=== PATIENT | female | born 1940 | race Caucasian/White ===

== ENCOUNTER 2018-10-16 18:16 | Emergency (ER) | payer MEDICARE, BC ==
[~2018-10-16] VITALS: Ht 165.1 cm; Wt 66.7 kg
--- OUTSIDE RECORDS SUMMARY | ~2018-10-16 | XMS | Encounter Summary ---
Demographics + + + | Address | [address] | | | [place] [address] | + + + | Home Phone | | + + + | Preferred Language | Unknown | + + + | Marital Status | Single | + + + | Temple Affiliation | Unknown | + + + | Race | Unknown | + + + | Ethnic Group | Unknown | + + + Author + + + | Author | [facility] | + + + | Organization | [facility] | + + + | Address | Unknown | + + + | Phone | Unavailable | + + + Support + + + + + | Name | Relationship | Address | Phone | + + + + + | Franny Pacheco | ECON | [address] | | | | | [place] | | | | | [address] | | + + + + + | Ashish Paniagua | ECON | [address] | | | | | [place] | | | | | [phone] | | + + + + + Care Team Providers + +------+ + | Care Inter Fold Roll Cutter Name | Role | Phone | + +------+ + | Silvia Adrian PA-C | PCP | | + +------+ + Reason for Visit + + + | Reason | Comments | + + + | Melly Early | Vic - 07/29/18 - sol[place]ad | + + + Encounter Details +--------+ + + + + | Date | Type | Department | Care Team | Description | +--------+ + + + + | 08/05/ | Documentati | [facility] | [place], | Labs Only ([facility] | | 2019 | on Only | [address] | KIRSTEN Martínez | - 07/29/18 - | | | | [address] | | [place]ia | | | | [place] [address] | | | | | | [phone] | | | +--------+ + + + + Social History + +-------+ +--------+------+ | Tobacco Use | Types | Packs/Day | Years | Date | | | | | Used | | + +-------+ +--------+------+ | Never Smoker | | | | | + +-------+ +--------+------+ + + +---------+ + | Alcohol Use | Drinks/We | oz/Week | Comments | | | ek | | | + + +---------+ + | No | | | | + + +---------+ + + + + | Sex Assigned at | Date Recorded | | | | + + + | Not on file | | + + + as of this encounter Plan of Treatment Not on fileas of this encounter Procedures + +--------+ + + + | Procedure Name | Priori | Date/Time | Associated Diagnosis | Comments | | | ty | | | | + +--------+ + + + | URINALYSIS | Routin | 07/29/2018 | | Results for this | | W/MICROSCOPIC | e | 12:00 AM | | procedure are in the | | (REFLEX TO CULTURE) | | PST | | results section. | + +--------+ + + + | PTH, INTACT AND | Routin | 07/29/2018 | | Results for this | | CALCIUM | e | 12:00 AM | | procedure are in the | | | | PST | | results section. | + +--------+ + + + | PROTEIN / CREATININE | Routin | 07/29/2018 | | Results for this | | RATIO, URINE | e | 12:00 AM | | procedure are in the | | | | PST | | results section. | + +--------+ + + + | CBC W/AUTO DIFF | Routin | 07/29/2018 | | Results for this | | (REFLEX TO MANUAL) | e | 12:00 AM | | procedure are in the | | | | PST | | results section. | + +--------+ + + + | URIC ACID | Routin | 07/29/2018 | | Results for this | | | e | 12:00 AM | | procedure are in the | | | | PST | | results section. | + +--------+ + + + | MAGNESIUM | Routin | 07/29/2018 | | Results for this | | | e | 12:00 AM | | procedure are in the | | | | PST | | results section. | + +--------+ + + + | RENAL FUNCTION PANEL | Routin | 07/29/2018 | | Results for this | | | e | 12:00 AM | | procedure are in the | | | | PST | | results section. | + +--------+ + + + in this encounter Results Uric acid (07/29/2018) + +-------+ + + | Component | Value | Ref Range | Performed At | + +-------+ + + | URIC ACID | 4.4 | 2.3 - 6.6 | [facility] | | | | | LABORATORY | + +-------+ + + + + | Specimen | + + | Blood | + + + + + + + | Performing | Address | City/State/Zipcode | Phone Number | | Organization | | | | + + + + + | [facility] | [address] | [place] [address] | | | LABORATORY | 13 | | | + + + + + Protein / creatinine ratio, urine (07/29/2018) + + + + + | Component | Value | Ref Range | Performed At | + + + + + | UR | Comment: NOT PERFORMED - | 0 - 150 | [facility] | | PROTEIN/CREATININE | | | LABORATORY | + + + + + + + | Specimen | + + | Urine - Urine, | | Unspecified Source | + + + + + | Narrative | Performed At | + + + | PROTEIN, URINE <4 - 0.0 - 50.0 CREATININE, URINE - 36 | [facility] | | | LABORATORY | + + + + + + + + | Performing | Address | City/State/Zipcode | Phone Number | | Organization | | | | + + + + + | [facility] | [address] | [place] [address] | | | LABORATORY | 13 | | | + + + + + Renal function panel (07/29/2018) + +---------+ + + | Component | Value | Ref Range | Performed At | + +---------+ + + | GLUCOSE | 112 (A) | 70 - 100 mg/dL | [facility] | | | | | LABORATORY | + +---------+ + + | BUN | 12 | 6 - 23 mg/dL | [facility] | | | | | LABORATORY | + +---------+ + + | CREATININE | 1.03 | 0.70 - 1.11 mg/dL | [facility] | | | | | LABORATORY | + +---------+ + + | PHOSPHORUS | | mg/dL | [facility] | | | | | LABORATORY | + +---------+ + + | Albumin | 4.4 | 3.5 - 5.0 | [facility] | | | | | LABORATORY | + +---------+ + + | SODIUM | 140 | 132 - 143 | [facility] | | | | | LABORATORY | + +---------+ + + | POTASSIUM | 4.6 | 3.6 - 5.1 mmol/L | [facility] | | | | | LABORATORY | + +---------+ + + | CHLORIDE | 101 | 95 - 112 mmol/L | [facility] | | | | | LABORATORY | + +---------+ + + | CO2 | 27 | 19 - 31 mmol/L | [facility] | | | | | LABORATORY | + +---------+ + + | ANION GAP AGAP | 16.6 | 7 - 21 mmol/L | [facility] | | | | | LABORATORY | + +---------+ + + | GFR MDRD Non Af Amer | | | [facility] | | | | | LABORATORY | + +---------+ + + | Phosphorus,Inorganic | 3.3 | 2.5 - 5.0 | [facility] | | | | | LABORATORY | + +---------+ + + | BUN/CREAT | 11.7 | 6.0 - 28.6 | [facility] | | | | | LABORATORY | + +---------+ + + | CALCIUM | 10.1 | 8.5 - 10.3 mg/dL | [facility] | | | | | LABORATORY | + +---------+ + + | EGFR | 52 | mg/dL | [facility] | | | | | LABORATORY | + +---------+ + + + + | Specimen | + + | Blood | + + + + + + + | Performing | Address | City/State/Zipcode | Phone Number | | Organization | | | | + + + + + | [facility] | [address] | [place] [address] | | | LABORATORY | 13 | | | + + + + + Magnesium (07/29/2018) + +-------+ + + | Component | Value | Ref Range | Performed At | + +-------+ + + | MAGNESIUM | 2.0 | 1.7 - 2.5 mg/dL | [facility] | | | | | LABORATORY | + +-------+ + + + + | Specimen | + + | Blood | + + + + + + + | Performing | Address | City/State/Zipcode | Phone Number | | Organization | | | | + + + + + | [facility] | [address] | [place] [address] | | | LABORATORY | 13 | | | + + + + + CBC W/Auto Diff (Reflex to Manual) (07/29/2018) + +---------+ + + | Component | Value | Ref Range | Performed At | + +---------+ + + | WBC | 4.3 (A) | 4.5 - 11.0 10^3/mL | [facility] | | | | | LABORATORY | + +---------+ + + | RBC | 4.00 | 3.8 - 5.1 10^6/ L | [facility] | | | | | LABORATORY | + +---------+ + + | HGB | 13.3 | 12.0 - 16.0 g/dL | [facility] | | | | | LABORATORY | + +---------+ + + | HCT | 37.6 | 35 - 45 % | [facility] | | | | | LABORATORY | + +---------+ + + | MCV | 93.9 | 81 - 99 fL | [facility] | | | | | LABORATORY | + +---------+ + + | MCH | 33 | 27 - 33 pg | [facility] | | | | | LABORATORY | + +---------+ + + | MCHC | 35 | 30 - 36 g/dL | [facility] | | | | | LABORATORY | + +---------+ + + | PLT | 243 | 140 - 440 K/ L | [facility] | | | | | LABORATORY | + +---------+ + + | RDW SD | 13.2 | 10.5 - 15.0 % | [facility] | | | | | LABORATORY | + +---------+ + + | MPV | | fL | [facility] | | | | | LABORATORY | + +---------+ + + | DIFF TYPE | | | [facility] | | | | | LABORATORY | + +---------+ + + | NEUTROPHILS | 50.5 | 39 - 80 % | [facility] | | | | | LABORATORY | + +---------+ + + | LYMPHOCYTES | 40.2 | 24 - 44 % | [facility] | | | | | LABORATORY | + +---------+ + + | MONOCYTES | 6.2 | 0 - 12 % | [facility] | | | | | LABORATORY | + +---------+ + + | EOSINOPHILS | 2.2 | 0 - 6 % | [facility] | | | | | LABORATORY | + +---------+ + + | BASOPHILS | 0.9 | 0 - 2 % | [facility] | | | | | LABORATORY | + +---------+ + + | NEUTROPHILS ABS | | / L | [facility] | | | | | LABORATORY | + +---------+ + + | LYMPHOCYTES ABS | | / L | [facility] | | | | | LABORATORY | + +---------+ + + | MONOCYTES ABS | | / L | [facility] | | | | | LABORATORY | + +---------+ + + | EOSINOPHILS ABS | | / L | [facility] | | | | | LABORATORY | + +---------+ + + | BASOPHILS ABS | | / L | [facility] | | | | | LABORATORY | + +---------+ + + + + | Specimen | + + | Blood | + + + + + + + | Performing | Address | City/State/Zipcode | Phone Number | | Organization | | | | + + + + + | [facility] | [address] | [place] [address] | | | LABORATORY | 13 | | | + + + + + Urinalysis w/microscopic (reflex to culture) (07/29/2018) + + + + + | Component | Value | Ref Range | Performed At | + + + + + | COLOR UA | Light Yellow | | [facility] | | | | | LABORATORY | + + + + + | CLARITY | Clear | | [facility] | | | | | LABORATORY | + + + + + | SPECIFIC | 1.006 | 1.005 - 1.030 | [facility] | | GRAVITY,URINE | | | LABORATORY | + + + + + | LEUKOCYTE ESTERASE | Negative | | [facility] | | | | | LABORATORY | + + + + + | NITRITE | Negative | | [facility] | | | | | LABORATORY | + + + + + | UROBILINOGEN | Normal | | [facility] | | | | | LABORATORY | + + + + + | PROTEIN | NEG | | [facility] | | | | | LABORATORY | + + + + + | PH,URINE | 6 | 5 - 9 | [facility] | | | | | LABORATORY | + + + + + | BLOOD | Comment: MODERATE | | [facility] | | | | | LABORATORY | + + + + + | KETONES | NEG | | [facility] | | | | | LABORATORY | + + + + + | BILIRUBIN | Negative | | [facility] | | | | | LABORATORY | + + + + + | GLUCOSE | Negative | | [facility] | | | | | LABORATORY | + + + + + | WBC | 2 | 0 - 4 | [facility] | | | | | LABORATORY | + + + + + | RBC | 5 (A) | 0 - 4 | [facility] | | | | | LABORATORY | + + + + + | EPITHELIAL | NEG | | [facility] | | | | | LAB[facility]AT[facility] | + + + + + | BACTERIA | None Seen | | [facility] | | | | | LABORATORY | + + + + + | Hyaline Cast | None Seen | | [facility] | | | | | LABORATORY | + + + + + + + + + + | Performing | Address | City/State/Zipcode | Phone Number | | Organization | | | | + + + + + | [facility] | [address] | [place] [address] | | | LABORATORY | 13 | | | + + + + + PTH, intact and calcium (07/29/2018) + +-------+ + + | Component | Value | Ref Range | Performed At | + +-------+ + + | PTH,INTACT | 44.83 | 15 - 65 | [facility] | | | | | LABORATORY | + +-------+ + + | CALCIUM | 10.1 | 8.5 - 10.3 | [facility] | | | | | LABORATORY | + +-------+ + + + + | Specimen | + + | Blood | + + + + + + + | Performing | Address | City/State/Zipcode | Phone Number | | Organization | | | | + + + + + | [facility] | [address] | [place] [address] | | | LABORATORY | 13 | | | + + + + + in this encounter Visit Diagnoses Not on filein this encounter"
--- OUTSIDE RECORDS SUMMARY | ~2018-10-16 | XMS | Encounter Summary ---
Demographics + + + | Address | [address] | | | [place] [address] | + + + | Home Phone | | + + + | Preferred Language | Unknown | + + + | Marital Status | Single | + + + | Taoism Affiliation | Unknown | + + + | Race | Unknown | + + + | Ethnic Group | Unknown | + + + Author + + + | Author | [facility] | + + + | Organization | [facility] | + + + | Address | Unknown | + + + | Phone | Unavailable | + + + Support + + + + + | Name | Relationship | Address | Phone | + + + + + | Franny Pacheco | ECON | [address] | | | | | [place] | | | | | [phone] | | + + + + + | Ashish Paniagua | ECON | [address] | | | | | [place] | | | | | [address] | | + + + + + Care Team Providers + +------+ + | Care Profile Trimmer Name | Role | Phone | + +------+ + | Silvia Adrian PA-C | PCP | | + +------+ + Encounter Details +--------+ + + + + | Date | Type | Department | Care Team | Description | +--------+ + + + + | 08/07/ | Documentati | [facility] | [place], | | | 2019 | on Only | [place] [address] | | | | | [address] | | | | | | [place] [address] | | | | | | [phone] | | | +--------+ + + + [...] | + +--------+ + + + | URINE MICROSCOPIC | Routin | 07/29/2018 | | Results for this | | ONLY | e | 7:15 AM | | procedure are in the | | | | PST | | results section. | + +--------+ + + + in this encounter Results Urine microscopic only (07/29/2018 7:15 AM) + + + + + | Component | Value | Ref Range | Performed At | + + + + + | COLOR UA | Yellow | | | + + + + + | CLARITY | Clear | | | + + + + + | Specific [place], UA | 1.006 | 1.005 - 1.030 | | + + + + + | LEUKOCYTE ESTERASE | Negative | | | + + + + + | NITRITE | Negative | | | + + + + + | UROBILINOGEN | Normal | | | + + + + + | PROTEIN | Negative | | | + + + + + | PH,URINE | 6 | 5 - 9 | | + + + + + | BLOOD | PositiveComment: | | | | | Moderate | | | + + + + + | KETONES | Negative | | | + + + + + | BILIRUBIN | Negative | | | + + + + + | GLUCOSE | Negative | | | + + + + + + + | Specimen | + + | Urine | + + in this encounter Visit Diagnoses Not on filein this encounter"
--- OUTSIDE RECORDS SUMMARY | ~2018-10-16 | XMS | Clinical Summary ---
Demographics + + + | Address | [address] | | | [place] [address] | + + + | Home Phone | | + + + | Preferred Language | Unknown | + + + | Marital Status | Single | + + + | Roman Catholic Affiliation | Unknown | + + + | Race | Unknown | + + + | Ethnic Group | Unknown | + + + Author + + + | Author | [email or web address] | + + + | Organization | [facility] | + + + | Address | Unknown | + + + | Phone | Unavailable | + + + Support + + + + + | Name | Relationship | Address | Phone | + + + + + | Franny Pacheco | ECON | [address] | | | | | [place] | | | | | [address] | | + + + + + | Ashish Wan | ECON | [address] | | | | | [place] | | | | | [address] | | + + + + + Care Team Providers + +------+ + | Care Warehouse And Receiving Supervisor Name | Role | Phone | + +------+ + | Silvia Adrian PA-C | PP | | + +------+ + Allergies + + + + + + | Active Allergy | Reactions | Severity | Noted | Comments | | | | | Date | | + + + + + + | Lisinopril | Cough | Low | 09/01/19 | | | | | | 15 | | + + + + + + Current Medications + + +-------+---------+------+------+-------+ | Prescription | Sig. | Disp. | Refills | Star | End | Statu | | | | | | t | Date | s | | | | | | Date | | | + + +-------+---------+------+------+-------+ | pravastatin | Take 40 mg by mouth | | | | | Activ | | (PRAVACHOL) 20 MG | daily. | | | | | e | | tablet | | | | | | | + + +-------+---------+------+------+-------+ | citalopram | Take 20 mg by mouth | | | | | Activ | | (CELEXA) 20 MG | daily. | | | | | e | | tablet | | | | | | | + + +-------+---------+------+------+-------+ | levothyroxine | Take 75 mcg by mouth | | | | | Activ | | (SYNTHROID, | daily. | | | | | e | | LEVOTHROID) 75 MCG | | | | | | | | tablet | | | | | | | + + +-------+---------+------+------+-------+ | Cholecalciferol | Take 1,000 Units by | | | | | Activ | | (VITAMIN D) 1000 | mouth daily. | | | | | e | | UNITS capsule | | | | | | | + + +-------+---------+------+------+-------+ | FOLIC | Take 1 tablet by | | | | | Activ | | [id number] PO | mouth daily. | | | | | e | + + +-------+---------+------+------+-------+ | losartan (COZAAR) | Take 100 mg by mouth | | | | | Activ | | 100 MG tablet | daily. | | | | | e | + + +-------+---------+------+------+-------+ | niacin 500 MG | Take 500 mg by mouth | | | | | Activ | | tablet | daily with | | | | | e | | | breakfast. | | | | | | + + +-------+---------+------+------+-------+ | Multiple | Take 1 tablet by | | | | | Activ | | Vitamins-Minerals | mouth daily. | | | | | e | | (HEALTHY EYES PO) | | | | | | | + + +-------+---------+------+------+-------+ Active Problems + + + | Problem | Noted Date | + + + | Hypercalcemia | 08/13/2017 | + + + | CKD (chronic kidney disease) stage 4, GFR 15-29 ml/min | 10/06/2011 | + + + | Hypertension | 10/06/2011 | + + + | Vitamin D deficiency | 10/06/2011 | + + + Encounters +--------+ + + + + | Date | Type | Specialty | Care Team | Description | +--------+ + + + + | 08/16/ | Office | | Andres Rodsa, | CKD (chronic kidney | | 2019 | Visit | | GREASE REFINING SUPERVISOR | disease) stage 4, | | | | | | GFR 15-29 ml/min | | | | | | (Primary Dx); | | | | | | Essential | | | | | | hypertension | +--------+ + + + + | 08/07/ | Documentati | | Bartolome, | | | 2018 | on Only | | NANDO Reina | | +--------+ + + + + | 08/07/ | Orders Only | | Bartolome, | CKD (chronic kidney | | 2018 | | | NANDO Reina | disease) stage 4, | | | | | | GFR 15-29 ml/min; | | | | | | Hypercalcemia; | | | | | | Essential | | | | | | hypertension | +--------+ + + + + | 08/05/ | Catie | | Wilman | Labs Only (Vic | | 2018 | on Only | | KIRSTEN Martínez | - 07/29/18 - | | | | | | soledad) | +--------+ + + + + from Last 3 Months Social History + +-------+ +--------+------+ | Tobacco [...] on file | | + + + Last Filed Vital Signs + + + + | Vital Sign | Reading | Time Taken | + + + + | Blood Pressure | 120/58 | 08/16/2018 1:53 PM PST | + + + + | Pulse | 64 | 08/16/2018 1:53 PM PST | + + + + | Temperature | 36.4 C (97.6 F) | 02/11/2018 10:56 AM PDT | + + + + | Respiratory Rate | 14 | 03/28/2013 10:00 AM PDT | + + + + | Oxygen Saturation | 98% | 08/16/2018 1:53 PM PST | + + + + | Inhaled Oxygen | - | - | | Concentration | | | + + + + | Weight | 69.8 kg (153 lb 14.4 | 08/16/2018 1:53 PM PST | | | oz) | | + + + + | Height | 165.1 cm (5' 5") | 08/16/2018 1:53 PM PST | + + + + | Body Mass Index | 25.61 | 08/16/2018 1:53 PM PST | + + + + Plan of Treatment + + + + + | Health Maintenance | Due Date | Last Done | Comments | + + + + + | Vaccine: | | | | | Dtap/Tdap/Td (1 - | 7 | | | | Tdap) | | | | + + + + + | Vaccine: Zoster (1 | | | | | of 2) | 8 | | | + + + + + | DEXA SCAN SCREENING | | | | | | 3 | | | + + + + + | Vaccine: | | | | | Pneumococcal 65+ | 3 | | | | Low/Medium Risk (1 | | | | | of 2 - PCV13) | | | | + + + + + | Vaccine: Influenza | | | | | (#1) | 8 | | | + + + + + Procedures + +--------+ + + + | [...] URIC ACID | Routin | 07/29/2018 | CKD (chronic | Results for this | | | e | 7:15 AM | kidney disease) | procedure are in the | | | | PST | stage 4, GFR 15- | results section. | | | | | ml/min | | | | | | Hypercalcemia | | | | | | Essential | | | | | | hypertension | | + +--------+ + + + | RENAL FUNCTION PANEL | Routin | 07/29/2018 | CKD (chronic | Results for this | | | e | 7:15 AM | kidney disease) | procedure are in the | | | | PST | stage 4, GFR 15-29 | results section. | | | | | ml/min | | | | | | Hypercalcemia | | | | | | Essential | | | | | | hypertension | | + +--------+ + + + | MAGNESIUM | Routin | 07/29/2018 | CKD (chronic | Results for this | | | e | 7:15 AM | kidney disease) | procedure are in the | | | | PST | stage 4, GFR 15-29 | results section. | | | | | ml/min | | | | | | Hypercalcemia | | | | | | Essential | | | | | | hypertension | | + +--------+ + + + | CBC W/AUTO DIFF | Routin | 07/29/2018 | CKD (chronic | Results for this | | (REFLEX TO MANUAL) | e | 7:15 AM | kidney disease) | procedure are in the | | | | PST | stage 4, GFR 15-29 | results section. | | | | | ml/min | | | | | | Hypercalcemia | | | | | | Essential | | | | | | hypertension | | + +--------+ + + + | PTH INTACT NO | Routin | 07/29/2018 | CKD (chronic | Results for this | | CALCIUM | e | 7:15 AM | kidney disease) | procedure are in the | | | | PST | stage 4, GFR 15-29 | results section. | | | | | ml/min | | | | | | Hypercalcemia | | | | | | Essential | | | | | | hypertension | | + +--------+ + + + [...] section. | + +--------+ + + + from Last 3 Months Results Urine microscopic only (07/29/2018 7:15 AM) + + + + + | Component | Value | Ref Range | Performed At | + + + + + | COLOR UA | Yellow | | | + + + + + | CLARITY | Clear | | | + + + + + | Specific [place], UA | 1.006 | 1.005 - 1.030 [...] + + | Urine | + + CBC W/Auto Diff (Reflex to Manual) (07/29/2018 7:15 AM)Only the most recent of 2 results w jovaniin the time period is included. + +---------+ + + | Component | Value | Ref Range | Performed At | + +---------+ + + | WBC | 4.3 (A) | 4.5 - 11.0 10^3/mL | [facility] | | | | | LABORATORY | + +---------+ + + | RBC | 4.00 | 3.8 - 5.1 10^6/ L | [facility] | | | | | LABORATORY | + +---------+ + + | HGB | 13.3 | 12.0 - 16.0 g/dL | [facility] | | | | | LABORATORY | + +---------+ + + | HCT | 37.6 | 35 - 45 % | [facility] | | | | | LABORATORY | + +---------+ + + | MCV | 93.9 | 81 - 99 fL | [facility] | | | | | LAB[facility]ATORY | + +---------+ + + | MCH | 33 | 27 - 33 pg | [facility] | | | | | LABORATORY | + +---------+ + + | MCHC | 35 | 30 - 36 g/dL | [facility] | | | | | LABORATORY | + +---------+ + + | PLT | 243 | 140 - 440 K/ L | [facility] | | | | | LABORATORY | + +---------+ + + | RDW SD | | % | [facility] | | | | | LAB[facility]AT[facility] | + +---------+ + + | MPV | | fL | [facility] | | | | | LAB[facility] | + +---------+ + + | DIFF TYPE | | | [facility] | | | | | LAB[facility]AT[facility] | + +---------+ + + | NEUTROPHILS | | % | [facility] | | | | | LAB[facility] | + +---------+ + + | LYMPHOCYTES | | % | [facility] | | | | | LAB[facility]ATORY | + +---------+ + + | MONOCYTES | | % | [facility] | | | | | LAB[facility]ATORY | + +---------+ + + | EOSINOPHILS | | % | [facility] | | | | | LAB[facility] | + +---------+ + + | BASOPHILS | | % | [facility] | | | | | LAB[facility]ATORY | + +---------+ + + | NEUTROPHILS ABS | | / L | [facility] | | | | | LAB[facility]AT[facility] | + +---------+ + + | LYMPHOCYTES ABS | | / L | [facility] | | | | | LAB[facility]AT[facility] | + +---------+ + + | MONOCYTES ABS | | / L | [facility] | | | | | LAB[facility]ATORY | + +---------+ + + | EOSINOPHILS ABS | | / L | [facility] | | | | | LAB[facility]AT[facility] | + +---------+ + + | BASOPHILS ABS | | / L | [facility] | | | | | LABORATORY | + +---------+ + + + + | Specimen | + + | Blood | + + + + + + + | Performing | Address | City/State/Zipcode | Phone Number | | Organization | | | | + + + + + | [facility] | [address] | [place] [address] | [phone] | | LABORATORY | [address] | | | + + + + + Uric acid (07/29/2018 7:15 AM)Only the most recent of 2 results within the time period is included. + +-------+ + + | Component | Value | Ref Range | Performed At | + +-------+ + + | URIC ACID | 4.4 | 2.3 - 6.6 | [facility] | | | | | LABORATORY | + +-------+ + + + + | Specimen | + + | Blood | + + + + + + + | Performing | Address | City/State/Zipcode | Phone Number | | Organization | | | | + + + + + | [facility] | [address] | [place] [address] | [phone] | | LABORATORY | [address]vd[address] | | | + + + + + PTH intact no calcium (07/29/2018 7:15 AM) + +-------+ + + | Component | Value | Ref Range | Performed At | + +-------+ + + | PTH INTACT NO | 10.1 | 8.5 - 10.3 pg/mL | [facility] | | CALCIUM | | | LABORATORY | + +-------+ + + + + | Specimen | + + | Blood | + + + + + + + | Performing | Address | City/State/Zipcode | Phone Number | | Organization | | | | + + + + + | [facility] | [address] | [place] [address] | [phone] | | LABORATORY | [address] | | | + + + + + Magnesium (07/29/2018 7:15 AM)Only the most recent of 2 results within the time period is included. + +-------+ + + | Component | Value | Ref Range | Performed At | + +-------+ + + | MAGNESIUM | 2.0 | 1.7 - 2.5 mg/dL | [facility] | | | | | LABORATORY | + +-------+ + + + + | Specimen | + + | Blood | + + + + + + + | Performing | Address | City/State/Zipcode | Phone Number | | Organization | | | | + + + + + | [facility] | [address] | [place] [address] | [phone] | | LABORATORY | [address] | | | + + + + + Renal function panel (07/29/2018 7:15 AM)Only the most recent of 2 results within the time period is included. + +---------+ + + | Component | Value | Ref Range | Performed At | + +---------+ + + | GLUCOSE | 112 (A) | 70 - 100 mg/dL | [facility] | | | | | LABORATORY | + +---------+ + + | BUN | 12 | 6 - 23 mg/dL | [facility] | | | | | LABORATORY | + +---------+ + + | CREATININE | 1.03 | 0.70 - 1.11 mg/dL | [facility] | | | | | LABORATORY | + +---------+ + + | PHOSPHORUS | 3.3 | 2.5 - 5.0 mg/dL | [facility] | | | | | LABORATORY | + +---------+ + + | Albumin | 4.4 | 3.5 - 5.0 | [facility] | | | | | LABORATORY | + +---------+ + + | SODIUM | 140 | 132 - 143 mmol/L | [facility] | | | | | LABORATORY | + +---------+ + + | POTASSIUM | 4.6 | 3.6 - 5.1 mmol/L | [facility] | | | | | LABORATORY | + +---------+ + + | CHLORIDE | 101 | 95 - 112 mmol/L | [facility] | | | | | LABORATORY | + +---------+ + + | CO2 | 27 | 19 - 31 mmol/L | [facility] | | | | | LABORATORY | + +---------+ + + | ANION GAP AGAP | 16.6 | 7 - 21 mmol/L | [facility] | | | | | LABORATORY | + +---------+ + + | GFR MDRD Non Af Amer | | | [facility] | | | | | LABORATORY | + +---------+ + + | Phosphorus,Inorganic | | | [facility] | | | | | LABORATORY | + +---------+ + + | BUN/CREAT | 11.7 | 6.0 - 28.6 | [facility] | | | | | LABORATORY | + +---------+ + + | CALCIUM | 10.1 | 8.5 - 10.3 mg/dL | [facility] | | | | | LABORATORY | + +---------+ + + | EGFR | 52 (A) | 60 - 140 mg/dL | [facility] | | | | | LABORATORY | + +---------+ + + + + | Specimen | + + | Blood | + + + + + + + | Performing | Address | City/State/Zipcode | Phone Number | | Organization | | | | + + + + + | [facility] | [address] | [place] [address] | [phone] | | LABORATORY | [address] | | | + + + + [...] | [address] | [place] [address] | | | LABORATORY | 13 | [...] | [address] | [place] [address] | | | LABORATORY | 13 | [...] | [address] | [place] [address] | | | LABORATORY | 13 | | | + + + + + from Last 3 Months Insurance + +--------+ +------+-------+ + | Payer | Benefi | Subscriber | Type | Phone | Address | | | t Plan | ID | | | | | | / | | | | | | | Group | | | | | + +--------+ +------+-------+ + | MEDICARE | MEDICA | [id number] | | | [address] | | | RE | | | | [place] [address] | | | IP-OP | | | | | + +--------+ +------+-------+ + | PREMERA | PREMER | [id number] | | | [address] [address] | | | A BLUE | | | | [place], [place] | | | [place] | | | | [address] | | | FED | | | | | | | PPO | | | | | + +--------+ +------+-------+ + + +--------+ +--------+ + + | Guarantor Name | Accoun | Relation to | Date | Phone | Billing Address | | | t Type | Patient | of | | | | | | | | | | + +--------+ +--------+ + + | LILLI WAN | Person | Self [birth year] | Home: | [address] | | | al/Fam | | 1940 | [phone] | [place] | | | [place] | | | [phone] | [address] | + +--------+ +--------+ + +
--- OUTSIDE RECORDS SUMMARY | ~2018-10-16 | XMS | Encounter Summary ---
Demographics + + + | Address | [address] | | | [place] [address] | + + + | Home Phone | | + + + | Preferred Language | Unknown | + + + | Marital Status | Single | + + + | Rastafari Affiliation | Unknown | + + + | Race | Unknown | + + + | Ethnic Group | Unknown | + + + Author + + + | Author | [facility] | + + + | Organization | [facility] | + + + | Address | Unknown | + + + | Phone | Unavailable | + + + Support + + + + + | Name | Relationship | Address | Phone | + + + + + | Franny Pacheco | ECON | [address] | | | | | [place] | | | | | [address] | | + + + + + | Ashish Paniagua | ECON | [address] | | | | | [place] | | | | | [address] | | + + + + + Care Team Providers + +------+ + | Care Commodity Director Name | Role | Phone | + +------+ + | Silvia Adrian PA-C | PCP | | + +------+ + Encounter Details +--------+ + + + + | Date | Type | Department | Care Team | Description | +--------+ + + + + | 08/07/ | Orders Only | [facility] | Mancuso, | CKD (chronic kidney | | 2019 | | [place] [address] | NANDO Reina | disease) stage 4, | | | | [address] | | GFR 15-29 ml/min; | | | | [place] [address] | | Hypercalcemia; | | | | [phone] | | Essential | | | | | | hypertension | +--------+ + + + + Social [...] | | + +--------+ + + + in this encounter Results Uric acid (07/29/2018 7:15 AM) + +-------+ + + [...] | + + + + + | [facility] | [address] | [place] [address] | [phone] | | LABORATORY | [address]vd[address] | | | + + + + + Renal function panel (07/29/2018 7:15 AM) + +---------+ + + | Component | [...] + + + | [facility] | [address] | [place] [address] | [phone] | | LABORATORY | [address]vd[address] | | | + + + + + Magnesium (07/29/2018 7:15 AM) + +-------+ + + [...] | + + + + + | [facility] | [address] | [place] [address] | [phone] | | LABORATORY | Blvd[address] | | | + + + + + CBC W/Auto Diff (Reflex to Manual) (07/29/2018 7:15 AM) + +---------+ + + | Component | [...] + + + | [facility] | [address] | [place] [address] | [phone] | | LABORATORY | [address]vd[address] | | [...] | + + + + + | [facility] | [address] | [place] [address] | [phone] | | LABORATORY | [address] | | | + + + + + in this encounter Visit Diagnoses + + | Diagnosis | + + | CKD (chronic kidney disease) stage 4, GFR 15-29 ml/min | + + | Hypercalcemia | + + | Essential hypertension | + + | Unspecified essential hypertension | + +"
--- OUTSIDE RECORDS SUMMARY | ~2018-10-16 | XMS | Encounter Summary ---
Demographics + + + | Address | [address] | | | [place] [address] | + + + | Home Phone | | + + + | Preferred Language | Unknown | + + + | Marital Status | Single | + + + | Zoroastrianism Affiliation | Unknown | + + + | Race | Unknown | + + + | Ethnic Group | Unknown | + + + Author + + + | Author | [facility] [employer] [facility] | + + + | Organization | [facility] [employer] [facility] | + + + | Address | Unknown | + + + | Phone | Unavailable | + + + Support + + + + + | Name | Relationship | Address | Phone | + + + + + | Franny Pacheco | ECON | [address] | | | | | [place] | | | | | [address] | | + + + + + | Ashish Paniagua | ECON | [address] | | | | | [place] | | | | | [address] | | + + + + + Care Team Providers + +------+ + | Care Dukey Rider Name | Role | Phone | + [...] GFR 15-29 ml/min; | | | | [place] [address] | | Hypercalcemia; | | | | [phone] | | Essential | | | | [...] + | [facility] | [address] | [place] [address] | [phone] | | LABORATORY | [address]vd[address] | | [...] + + + | [facility] | [address] | [place] [address] | [phone] | | LABORATORY | [address]vd[address] | | [...] + | [facility] | [address] | [place] [address] | [phone] | | LABORATORY | Blvd[address] | | [...] + + + | [facility] | [address] | [place] [address] | [phone] | | LABORATORY | [address] | | [...] | + + + + + | [facility] | [address] | [place] [address] | [phone] | | LABORATORY | [address] | | | + + + + + in this encounter Visit Diagnoses + + | Diagnosis | + + | CKD (chronic kidney disease) stage 4, GFR 15-29 ml/min | + + | Hypercalcemia | + + | Essential hypertension | + + | Unspecified essential hypertension | + +"
--- OUTSIDE RECORDS SUMMARY | ~2018-10-16 | XMS | Clinical Summary ---
Demographics + + + | Address | [address] | | | [place] [address] | + + + | Home Phone | | + + + | Preferred Language | Unknown | + + + | Marital Status | Single | + + + | Cheondoism Affiliation | Unknown | + + + | Race | Unknown | + + + | Ethnic Group | Unknown | + + + Author + + + | Author | [facility] [employer] | + + + | Organization | [facility] | + + + | Address | Unknown | + + + | Phone | Unavailable | + + + Support + + + + + | Name | Relationship | Address | Phone | + + + + + | Franny Pacheco | ECON | [address] | | | | | [place] | | | | | [address] | | + + + + + | Ashish Wan | ECON | [address] | | | | | [place] | | | | | [address] | | + + + + + Care Team Providers + +------+ + | Care College Professor Name | Role | Phone | + [...] | | | | Activ | | [id number] PO | mouth daily. | | | [...] | 08/16/ | Office | | Andres Rodas, | CKD (chronic kidney | | 2019 | Visit | | ENROLLMENT CONSULTANT | disease) stage 4, | | | [...] + + + + + | Specific [place], UA | 1.006 | 1.005 - 1.030 [...] + + + | [facility] | [address] | [place] [address] | [phone] | | LABORATORY | [address]vd[address] | | [...] + + + | [facility] | [address] | [place] [address] | [phone] | | LABORATORY | [address] | | [...] + + + | [facility] | [address] | [place] [address] | [phone] | | LABORATORY | [address]vd[address] | | [...] [facility] | [address] | [place] [address] | [phone] | | LABORATORY | Blvd. | | [...] + + + | [facility] | [address] | [place] [address] | [phone] | | LABORATORY | [address] | | [...] | [address] | [place] [address] | | | LABORATORY | 13 | [...] | [address] | [place] [address] | | | LABORATORY | 13 | [...] | [address] | [place] [address] | | | LABORATORY | 13 | [...] +------+-------+ + | MEDICARE | MEDICA | [id number] | | | [address] | | | RE | | | | [place] [address] | | | IP-OP | | | | | + +--------+ +------+-------+ + | PREMERA | PREMER | [id number] | | | [address] [address] | | | A BLUE | | | | [place], [place] | | | [place] | | | | [address] | | | FED | | | [...] | Self | [birth year] | Home: | [address] | | | al/Fam | | 1940 | [phone] | [place] | | | [place] | | | [phone] | [address] | + +--------+ +--------+ + +
--- OUTSIDE RECORDS SUMMARY | ~2018-10-16 | XMS | Encounter Summary ---
Demographics + + + | Address | [address] | | | [place] [address] | + + + | Home Phone | | + + + | Preferred Language | Unknown | + + + | Marital Status | Single | + + + | Evangelical Affiliation | Unknown | + + + | Race | Unknown | + + + | Ethnic Group | Unknown | + + + Author + + + | Author | [facility] [employer] [employer] | + + + | Organization | [facility] | + + + | Address | Unknown | + + + | Phone | Unavailable | + + + Support + + + + + | Name | Relationship | Address | Phone | + + + + + | Franny Pacheco | ECON | [address] | | | | | [place] | | | | | [address] | | + + + + + | Ashish Paniagua | ECON | [address] | | | | | [place] | | | | | [address] | | + + + + + Care Team Providers + +------+ + | Care Predator Control Trapper Name | Role | Phone | + [...] | | | | | [place] [address] | | | | | | [phone] | | | +--------+ + + + [...] + + + + + | Specific [place], UA | 1.006 | 1.005 - 1.030 [...]
--- OUTSIDE RECORDS SUMMARY | ~2018-10-16 | XMS | Encounter Summary ---
Demographics + + + | Address | [address] | | | [place] [address] | + + + | Home Phone | | + + + | Preferred Language | Unknown | + + + | Marital Status | Single | + + + | Shinto Affiliation | Unknown | + + + | Race | Unknown | + + + | Ethnic Group | Unknown | + + + Author + + + | Author | [facility] | + + + | Organization | [facility] | + + + | Address | Unknown | + + + | Phone | Unavailable | + + + Support + + + + + | Name | Relationship | Address | Phone | + + + + + | Franny Pacheco | ECON | [address] | | | | | [place] | | | | | [address] | | + + + + + | Ashish Paniagua | ECON | [address] | | | | | [place] | | | | | [address] | | + + + + + Care Team Providers + +------+ + | Care Building Serviceman Name | Role | Phone | + +------+ + | Silvia Adrian PA-C | PCP | | + +------+ + Encounter Details +--------+---------+ + + + | Date | Type | Department | Care Team | Description | +--------+---------+ + + + | 08/16/ | Office | [facility] | Andres Rodas, | CKD (chronic kidney | | 2019 | Visit | [place] [address] | [place] [address] | disease) stage 4, | | | | [address] | [address] | GFR 15-29 ml/min | | | | [place] [address] | [place] [address] | (Primary Dx); | | | | [phone] | [phone] | Essential | | | | | | hypertension | +--------+---------+ + + + Social History + +-------+ [...] + + + as of this encounter Last Filed Vital Signs + + + + | Vital Sign | Reading | Time Taken | + + + + | Blood Pressure | 120/58 | 08/16/2018 1:53 PM PST | + + + + | Pulse | 64 | 08/16/2018 1:53 PM PST | + + + + | Temperature | - | - | + + + + | Respiratory Rate | - | - | + + + + | Oxygen [...] PM PST | + + + + in this encounter Instructions Patient Instructions - Andres Rodas ARNP - 08/16/2018 2:00 PM PST Medication Changes made at today's visit: None Next LAB WORK should be done in about: 6 Months You do NOT need to fast for this lab work, keep hydrated. Next APPOINTMENT: in about 6 Months Other Instructions: Low Salt Diet Recommended Please have lab work done 1 weeks prior to your appointment. Make sure you are well hydrated prior to going to the lab and are able to give a urine s ample. Call the office with any questions or concerns. If you are taking a proton pump inhibitor, such as Protonix (omeprazole), talk to your [facility] care provider about if you need this medication oysterman. Call our office or your PCP if you have blood pressure over 150/90 on more than one occa jaison, or low blood pressure that is concerning. If you experience diarrhea and /or vomiting for more than 24 hours with no relief please seek medical help immediately. The treatments that are recommended to slow the progression of Chronic Kidney Disease in clude blood sugar control, blood pressure control, healthy body weight (BMI less than 30 kg/ m2), avoid sedentary lifestyle, avoid smoking/ tobacco, avoid NSAIDs, early intervention of worsening nausea, vomiting, no or low appetite and/or frequent diarrhea and avoid IV contras t. I urge that you measure your BP at least daily, twice daily, record it and bring record to every appointment with every healthcare provider you see. Do not drink alcohol. Avoid caffeinated beverages such as soda pop, coffee, espresso drinks, energy drinks. Please bring all of your medications in the pharmacy bottles to every visit so a medicat ion review can be done. Make all healthcare providers aware of the presence of kidney disease and request to adj ust all medications according to level of kidney function and to avoid nephrotoxic medicatio ns if possible, including but not limited to antibiotics. Call us with any questions about m eds. DO NOT TAKE any anti-inflammatory drugs such Ibuprofen, Diclofenac, Motrin, Advil, Arechiga xicam, naprosyn (Aleve), Celebrex, decongestants containing pseudoephedrine (such as some fo lorenza of Sudafed or Actifed) or herbal supplements (because of lack of FDA approval) Short term use of acetaminophen (Tylenol) for fever or pain is okay. If in doubt please call our office for verification. Avoid exposure to IV contrast agents (DYE) used in CT scans, MRI's, Fluoroscopy, or in h eart catheterization procedures unless necessary or for a life saving procedure. If you smoke, you must quit. Smoking worsens kidney disease. in this encounter Progress Notes Andres Rodas ARNP - 08/16/2018 2:00 PM PSTFormatting of this note may be different f rom the original. Patient Active Problem List Diagnosis CKD (chronic kidney disease) stage 4, GFR 15-29 ml/min Hypertension Vitamin D deficiency Hypercalcemia Dear Silvia: I saw Ms. Paniagua in the office today with her for f/u on Chronic Kidney Disease and a ssociated complications. As you are familiar with her case, I will not state her past histo ry in detail. Briefly, this patient has a longstanding history of hypertension and diabetes. she says that she feels 'good ' today. she denies any blurred vision tinnitus, headache, fever, chills, or cough. No nausea, vomiting, abdominal pain, diarrhea, melena, or hematochezia. No chest pain, pal pitation, dizziness, loss of consciousness, orthopnea, paroxysmal nocturnal dyspnea, or leg edema. No dysuria, hematuria, incontinence, or symptoms of UTI. she has 1 nightly nocturia. No history of passing kidney stones. The following portions of the patient's history were reviewed and updated as appropriate: a llergies, current medications, past medical history, past social history, past surgical hist ory, family history and problem list. As in History of Present Illness & in Assessment. All the twelve systems were reviewed and were otherwise negative. Current Outpatient Prescriptions Medication Sig Dispense Refill Cholecalciferol (VITAMIN D) 1000 UNITS capsule Take 1,000 Units by mouth daily. citalopram (CELEXA) 20 MG tablet Take 20 mg by mouth daily. FOLIC [id number]-D PO Take 1 tablet by mouth daily. levothyroxine (SYNTHROID, LEVOTHROID) 75 MCG tablet Take 75 mcg by mouth daily. losartan (COZAAR) 100 MG tablet Take 100 mg by mouth daily. Multiple Vitamins-Minerals (HEALTHY EYES PO) Take 1 tablet by mouth daily. niacin 500 MG tablet Take 500 mg by mouth daily with breakfast. pravastatin (PRAVACHOL) 20 MG tablet Take 40 mg by mouth daily. No current facility-administered medications for this visit. Physical Exam: BP 120/58 (BP Location: Left upper arm, Patient Position: Sitting) | Pulse 64 | Ht 1.651 m (5' 5") | Wt 69.8 kg (153 lb 14.4 oz) | SpO2 98% | BMI 25.61 kg/m General appearance: Pleasant, not in acute distress. Neck: Supple without tracheal deviation or jugular venous distension. Head and ENT: Head is atraumatic. The oropharynx is without erythema or thrush. Eyes: Anicteric. The extraocular muscle movements are normal. Lungs: Clear to auscultation bilaterally. There are no wheezes. Heart: Regular rate and rhythm without any rub, gallop. no murmur. Abdominal exam: Soft and nontender with normal bowel sounds. Musculoskeletal: No costovertebral angle tenderness bilaterally. Extremities: Warm to touch with no leg edema. There is no cyanosis. Skin: There are no rashes, petechiae, or ecchymosis. Neurological: Awake, alert, and oriented to time, place, and person. Normal gross motor po wer. There is no asterixis. Psychiatric: The patient s behavior is normal. Judgment and thought content are normal. Lab Results Component Value Date BUN 12 07/29/2018 CREATININE 1.03 07/29/2018 EGFR 52 (A) 07/29/2018 NA 140 07/29/2018 K 4.6 07/29/2018 CL 101 07/29/2018 CO2 27 07/29/2018 CA 10.1 07/29/2018 PHOS 3.3 07/29/2018 MG 2.0 07/29/2018 ALB 4.4 07/29/2018 HGB 13.3 07/29/2018 URICACID 4.4 07/29/2018 WBC 4.3 (A) 07/29/2018 HCT 37.6 07/29/2018 LABPROT 07/29/2018 Comment: NOT PERFORMED - [id number] 02/09/2017 Assessment: Ms. Paniagua is a 78 y.o. female patient with stage III CKD on a background of hypertension and diabetes. 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 RENAL FUNCTION: Relatively stable BLOOD PRESSURE: Ok BLOOD SUGAR: Reports controlled ELECTROLYTES: Ok ANEMIA: None VITAMIN D: Acceptable PARATHYROID HORMONE: [place] suppressed now URIC ACID: Acceptable PROTEINURIA: Minimal URINALYSIS: No uti or hematuria VOLUME STATUS: Euvolumic. Discussions/Recommendations: I discussed today with Ms.. Paniagua the meaning of her CKD and the interaction of that with he r hypertension and diabetes. I stressed the importance of keeping her BP and BG controlled and avoiding getting dehydrated if we are to have a chance at helping preserve her renal fun ction. she showed good understanding. I gave her instructions on how to chart her blood pressure in the appropriate manner at [facility]. she is to call us if they fall outside of the optimal provided range. she will bring her sphygmomanometer for validation once a year. she will strictly abide by a low sodium diet and will avoid all kinds of NSAIDs for analges ia. PLAN: Continue current medications. BP Charting: she will bring me back her home BP charts in 2 weeks. At that time, I will decide whether any changes to her vasoactive regimen are warranted. Follow up labs include: RFP, Magnesium, CBC, uric acid, Urine total sopvfjf-av-wtliyqgei e ratio and other labs as indicated. Patient has expressed understanding of today's instructions, all questions have been ans wered to their satisfaction and written instructions have been provided. She will continue to F/U with your office regularly. She will have labs done before she comes back in 6 months. Thank you Silvia for the opportunity to follow up with this patient and be part of the care team. Please do not hesitate to call me at any time with questions or concerns. Truly yours, Andres LARSEN [facility]ph[facility] This note prepared with voice recognition software, if any questions concerning spelling an d/or grammar, please call. in this encounter Plan of Treatment + +--------+ + + | Name | Priori | Associated Diagnoses | Order Schedule | | | ty | | | + +--------+ + + | Renal function panel | Routin | CKD (chronic | Expected: | | | e | kidney disease) | 02/13/2019, Expires: | | | | stage 4, GFR 15-29 | 08/16/2019 | | | | ml/min Essential | | | | | hypertension | | + +--------+ + + | CBC W/Auto Diff (Reflex to | Routin | CKD (chronic | Expected: | | Manual) | e | kidney disease) | 02/13/2019, Expires: | | | | stage 4, GFR 15-29 | 08/16/2019 | | | | ml/min Essential | | | | | hypertension | | + +--------+ + + | Magnesium | Routin | CKD (chronic | Expected: | | | e | kidney disease) | 02/13/2019, Expires: | | | | stage 4, GFR 15-29 | 08/16/2019 | | | | ml/min Essential | | | | | hypertension | | + +--------+ + + | Uric acid | Routin | CKD (chronic | Expected: | | | e | kidney disease) | 02/13/2019, Expires: | | | | stage 4, GFR 15-29 | 02/13/2019 | | | | ml/min Essential | | | | | hypertension | | + +--------+ + + | Protein / creatinine ratio, urine | Routin | CKD (chronic | Expected: | | | e | kidney disease) | 02/13/2019, Expires: | | | | stage 4, GFR 15-29 | 08/16/2019 | | | | ml/min Essential | | | | | hypertension | | + +--------+ + + as of this encounter Visit Diagnoses + + | Diagnosis | + + | CKD (chronic kidney disease) stage 4, GFR 15-29 ml/min - Primary | + + | Essential hypertension | + + | Unspecified essential hypertension | + +
--- OUTSIDE RECORDS SUMMARY | ~2018-10-16 | XMS | Encounter Summary ---
Demographics + + + | Address | [address] | | | [place] [address] | + + + | Home Phone | | + + + | Preferred Language | Unknown | + + + | Marital Status | Single | + + + | Yazdanism Affiliation | Unknown | + + + | Race | Unknown | + + + | Ethnic Group | Unknown | + + + Author + + + | Author | [facility] | + + + | Organization | [facility] | + + + | Address | Unknown | + + + | Phone | Unavailable | + + + Support + + + + + | Name | Relationship | Address | Phone | + + + + + | Franny Pacheco | ECON | [address] | | | | | [place] | | | | | [address] | | + + + + + | Ashish Paniagua | ECON | [address] | | | | | [place] | | | | | [address] | | + + + + + Care Team Providers + +------+ + | Care Sole Molding Machine Operator Name | Role | Phone | + [...] | | keshia | | | | [place] [address] | | | | | | [phone] | | | +--------+ + + + [...] | [address] | [place] [address] | | | LABORATORY | 13 | [...] | [address] | [place] [address] | | | LABORATORY | 13 | [...] | [address] | [place] [address] | | | LABORATORY | 13 | [...] | [address] | [place] [address] | | | LABORATORY | 13 | [...] | [address] | [place] [address] | | | LABORATORY | 13 | [...] | [facility] | [address] | [place] [address] | | | LABORATORY | 13 | [...] | [address] | [place] [address] | | | LABORATORY | 13 | | | + + + + + in this encounter Visit Diagnoses Not on filein this encounter"
--- OUTSIDE RECORDS SUMMARY | ~2018-10-16 | XMS | Encounter Summary ---
Demographics + + + | Address | [address] | | | [place] [address] | + + + | Home Phone | | + + + | Preferred Language | Unknown | + + + | Marital Status | Single | + + + | Jainism Affiliation | Unknown | + + + | Race | Unknown | + + + | Ethnic Group | Unknown | + + + Author + + + | Author | [facility] | + + + | Organization | [facility] | + + + | Address | Unknown | + + + | Phone | Unavailable | + + + Support + + + + + | Name | Relationship | Address | Phone | + + + + + | Franny Pacheco | ECON | [address] | | | | | [place] | | | | | [address] | | + + + + + | Ashish Paniagua | ECON | [address] | | | | | [place] | | | | | [address] | | + + + + + Care Team Providers + +------+ + | Care Environmental Protection Forester Name | Role | Phone | + [...] ml/min | | | | [place] [address] | [place] [address] | (Primary Dx); | | | | [phone] | [phone] | Essential | | | | | [...] such as Protonix (omeprazole), talk to your [facility] care provider about if you need this medication laborer marine terminal. Call our office or your PCP if [...] Take 20 mg by mouth daily. FOLIC [id number] PO Take 1 tablet by mouth daily. [...] 07/29/2018 LABPROT 07/29/2018 Comment: NOT PERFORMED - [id number] 02/09/2017 Assessment: Ms. Paniagua is a 78 y.o. female patient with stage III CKD on a background of hypertension and diabetes. 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 RENAL FUNCTION: Relatively stable BLOOD PRESSURE: Ok BLOOD SUGAR: Reports controlled ELECTROLYTES: Ok ANEMIA: None VITAMIN D: Acceptable PARATHYROID HORMONE: [place] suppressed now URIC ACID: Acceptable PROTEINURIA: Minimal [...] blood pressure in the appropriate manner at [facility]. she is to call us if they [...] RFP, Magnesium, CBC, uric acid, Urine total tqghugp-bw-xwqavlxtj e ratio and other labs as indicated. [...] questions or concerns. Truly yours, Andres LARSEN [facility] Nephrology This note prepared with voice [...]
[2018-10-16] MEDS ORDERED: PRAVASTATIN SOD40 MG PO (19:05)
[2018-10-16] MEDS ORDERED: CITALOPRAM HBR20 MG PO (19:06)
[2018-10-16] MEDS ORDERED: LOSARTAN POTAS100 MG PO (19:06)
[2018-10-16] MEDS ORDERED: LEVOTHYROXINE75 MCG PO (19:06)
--- NOTE | 2018-10-17 15:35 | EKG ---
[facility] [address] [facility] [address] [place], [place] [address] Signed Sinus bradycardia Low voltage QRS Borderline ECG No previous ECGs available Confirmed by YONIS LAGUNAS DO ([id number]) on 10/17/2018 3:35:00 PM Electronically Signed By: YONIS LAGUNAS DO 10/17/18 1535 PATIENT NAME: EMELY WAN FRANCISCA Electrocardiogram DATE OF : 36 PHYSICIAN: YONIS LAGUNAS DO REPORT #: [id number] REPORT IS CONFIDENTIAL AND NOT TO BE RELEASED WITHOUT AUTHORIZATION
== END 2018-10-16 21:28 | disposition home or self-care (01) ==
LOC: ED 18:16
DX: R07.9 Chest pain, unspecified (principal); I10 Essential (primary) hypertension; E78.5 Hyperlipidemia, unspecified; E03.9 Hypothyroidism, unspecified; Z79.899 Other long term (current) drug therapy
CPT/HCPCS: 71046; 80053; 81001; 83690; 84484; 85025; 93005; 93010; 99284-25

== ENCOUNTER → 2020-06-01 | Day surgery (SDC) | payer MEDICARE, BC ==
[~2020-06-01] MED LIST: CITALOPRAM HBR20 MG PO; LEVOTHYROXINE75 MCG PO; LOSARTAN POTAS100 MG PO; PRAVASTATIN SOD40 MG PO
--- NOTE | 2020-06-01 12:05 | NUR ---
0920: PATIENT ARRVIED TO DAY SURGERY UNIT AMBULATORY. PLACED IN ROOM 8. 1000: VS CHECKED. PATIENT STATES NO NEEDS AT THIS TIME. CALL LIGHT WITHIN REACH. 1105: CHECKED PATIENT. CONSENT REVIEWED AND SIGNED. 1140: LEFT BREAST BIOPTY BIOPSY COMPLETE. PATIENT TOLERATED BIOPSY WELL. 1159: VS CHECKED. PATIENT STATES FEELING WELL. PATIENT DISCHARGED TO HOME AMBULATORY.
--- NOTE | 2020-06-01 15:35 | OR ---
[facility] [address] [place], [place] [address] Signed DATE OF OPERATION: 06/01/2020 SURGEON: Clotilde Simpson MD PREOPERATIVE DIAGNOSIS: Left periareolar breast mass. POSTOPERATIVE DIAGNOSIS: Left periareolar breast mass. PROCEDURE: Ultrasound-guided core biopsy of left breast mass. ANESTHESIA: 1% lidocaine with epinephrine. INDICATION: This 79-year-old white woman is a patient of VICENTA Ward. She has noticed a mass in the left breast in the periareolar area on the left side inferiorly. A mammogram shows a highly suspicious lesion. Given her small breast size, flat breast configuration, and so forth, concern for atypical biopsy to confirm diagnosis of breast cancer has been deferred to me for biopsy and treatment. She is here today for that purpose. She understands the risks of bleeding, infection, and so forth related to biopsy and wished to proceed. FINDINGS: The lesion was palpable in the inferior margin of the left areola. Ultrasound did identify the breast and core biopsy was obtained with assistance of ultrasound guidance. Ultrasound confirmed that the lesion was clearly biopsied and three good cores of tissue were obtained. DESCRIPTION OF PROCEDURE: In semi recumbent position, breast exam was undertaken showing a palpable mass in the inferior areolar margin on the left side. Ultrasound using the SonLapSpacete device was used to identify the lesion as well. The breast area was then prepared with a chlorhexidine solution and draped sterilely. A 1% lidocaine was injected locally. A small incision was made with an #11 blade and the 14-gauge Biopty gun device guided to the area of the lesion with ultrasound guidance and palpation. Core biopsies were obtained x3. Good specimens were obtained. Pressure was applied and there was no untoward bleeding, only a Electronically Signed By: CLOTILDE SIMPSON MD 06/01/20 1535 PATIENT NAME: EMELY WAN FRANCISCA OPERATIVE REPORT DATE OF : 36 REPORT #: [id number] PHYSICIAN: CLOTILDE SIMPSON MD PCP: JESUS BATISTA PA-C REPORT IS CONFIDENTIAL AND NOT TO BE RELEASED WITHOUT AUTHORIZATION [address], [place] [address] Signed small amount of bruising noted. A Band-Aid was applied. The patient tolerated procedure well. Clotilde Simpson MD JM/MODL /[id number] cc: VICENTA Ward MD Copies: LEYDI FELICIANO MD ~ Electronically Signed By: CLOTILDE SIMPSON MD 06/01/20 1535 PATIENT NAME: EMELY WAN OPERATIVE REPORT DATE OF : 36 REPORT #: [id number] PHYSICIAN: CLOTILDE SIMPSON MD PCP: JESUS BATISTA PA-C REPORT IS CONFIDENTIAL AND NOT TO BE RELEASED WITHOUT AUTHORIZATION
--- NOTE | 2020-06-03 10:44 | PATH ---
[facility] [address] [facility] [place], [place] [address] Signed THIS IS AN ADDENDUM REPORT SPECIMEN(S): A LEFT BREAST, PERIAREOLAR SPECIMEN SOURCE: A. LEFT BREAST, PERIAREOLAR CLINICAL HISTORY: Left breast lump. Breast biopsy. Specimen Time to Fixation- 06/01/2020 11:38:00 AM FINAL PATHOLOGIC DIAGNOSIS: Breast, left, periareolar mass, needle core biopsy: - Invasive lobular carcinoma with the following features: - Predicted Faisal histologic score: - Glandular (acinar)/tubular differentiation: Score 3. - Nuclear pleomorphism: Score 1. - Mitotic rate: Score 1. - Overall grade: I of III (total score 5 of 9). - Longest confluent tumor focus: 8.5 mm. - Lymphovascular invasion: Not identified. - Associated in situ component: Present, Lobular carcinoma in situ (LCIS), classic type. - Microcalcifications: Not identified. - Estrogen receptor, progesterone receptor, HER2 by IHC, and Ki-67 proliferating index: Pending, to be reported by an addendum. COMMENT: The result is called to Dr. Deleon's office by Dr. Kohler on 06/02/2020. As part of [facility] Quality Improvement Program, this case was reviewed by another member of our pathology staff. An immunohistochemical stain (with appropriately staining controls) for E-cadherin was performed and is negative in the invasive carcinoma and in situ carcinoma, supporting lobular origin. NAL:NRT:cml:C1NR MICROSCOPIC EXAMINATION: Histologic sections of all submitted blocks are examined by light microscopy. These findings, together with the gross examination, support the pathologic diagnosis. PATIENT NAME: EMELY WAN PATHOLOGY DATE OF : 36 REPORT #: [id number] PHYSICIAN: MURALI BLACK PCP: JESUS BATISTA PA-C REPORT IS CONFIDENTIAL AND NOT TO BE RELEASED WITHOUT AUTHORIZATION [facility] [address] [place], [place] [address] Signed GROSS DESCRIPTION: The specimen, labeled "LL, A," and designated on the requisition "left periareolar breast mass, left breast lump," is received in formalin and consists of four fatty fibrous tissue cores and fragments, measuring up to 0.1 cm in diameter and ranging from 0.3-1.5 cm in length. The cores and fragments are inked with eosin and entirely submitted in cassette (A1). Cold ischemic time: 8 minutes Approximate time in formalin: 10 hours 22 minutes AT (under the direct supervision of a pathologist) The Gross Description was prepared using a voice recognition system. The report was reviewed for accuracy; however, sound-alike word errors, addition and/or deletions may occur. If there is any question about this report, please contact Client Services. ADDITIONAL NOTES: Immunohistochemical and/or in situ hybridization studies were performed on this case with the appropriate positive controls that react as expected. This test was developed and its performance characteristics determined by [facility]. It has not been cleared or approved by the U.S. Food and Drug Administration. The FDA has determined that such clearance or approval is not necessary. This test is used for clinical purposes. It should not be regarded as investigational or for research. [facility] is certified under the Clinical Laboratory Improvement Amendments of 1988 (CLIA) as qualified to perform high complexity clinical laboratory testing. PERFORMING LABORATORY: The technical component was performed by [facility], [address] [place] [id number] (Storage Engineer: Esther Mtz MD; CLIA# [id number]). [facility], [address] [facility] [address] [place] [id number] (CLIA# [id number]). ADDITIONAL NOTES: The technical component was performed by [facility], [address] [place] [id number] (Storage Engineer: Esther Mtz MD; CLIA# [id number]). Immunohistochemical and/or in situ hybridization studies were performed on this case with the appropriate positive controls that react as expected. This test was developed and its performance PATIENT NAME: EMELY WAN PATHOLOGY DATE OF : 36 REPORT #: [id number] PHYSICIAN: MURALI BLACK PCP: JESUS BATISTA PA-C REPORT IS CONFIDENTIAL AND NOT TO BE RELEASED WITHOUT AUTHORIZATION [facility] [address] [place], [place] [address] Signed characteristics determined by [facility]. It has not been cleared or approved by the U.S. Food and Drug Administration. The FDA has determined that such clearance or approval is not necessary. This test is used for clinical purposes. It should not be regarded as investigational or for research. [facility] is certified under the Clinical Laboratory Improvement Amendments of 1988 (CLIA) as qualified to perform high complexity clinical laboratory testing. This assay has not been validated for specimens that have been decalcified. REASON FOR ADDENDUM: To add results of additional tests. ADDENDUM PATHOLOGIC DIAGNOSIS: Estrogen receptor: Positive. - 90% of tumor cells with moderate average intensity. Progesterone receptor: Positive. - 10% of tumor cells with moderate average intensity. Ki-67 proliferation index: 13%. NAL:cml ADDENDUM MICROSCOPIC EXAMINATION: Block: A1. The cold ischemia time is 8 minutes. The fixative is 10% NBF. The length of fixation is 10 hours 22 minutes, meeting ASCO/CAP guidelines. Estrogen receptor clone SP1 and progesterone receptor clone [id number] by [employer] [place], [place]. Detection: HRP Polymer Detection on the [employer] Immunostainer with appropriate controls. Nuclear immunoreactivity of 1% or greater is considered positive by ASCO/CAP 2020 guidelines. Internal control cells for ER are positive. Internal control cells for SD are positive. A Ki-67 proliferation index is performed, and 500 cells are counted. NAL:cml The technical component was performed by [facility], [address] [place] [id number] (Storage Engineer: Esther Mtz MD; CLIA# [id number]). [facility], [address] [place] [id number] (CLIA# [id number]). REASON FOR ADDENDUM: To add results of additional testing. PATIENT NAME: EMELY WAN PATHOLOGY DATE OF : 36 REPORT #: [id number] PHYSICIAN: MURALI PATHOLOGY PCP: JESUS BATISTA PA-C REPORT IS CONFIDENTIAL AND NOT TO BE RELEASED WITHOUT AUTHORIZATION [facility] [address] [facility] [place], [place] [address] Signed ADDENDUM PATHOLOGIC DIAGNOSIS: HER-2 protein by IHC, left breast periareolar mass: - Negative; IHC score 0. ARW:[facility] ADDENDUM MICROSCOPIC EXAMINATION: Block: A1. The fixation is 10% buffered formalin. The length of fixation is 10 hours and 22 minutes, meeting ASCO/CAP guidelines. HER-2 protein expression by immunohistochemistry using the FDA-approved HER-2 Pathway [place] at the request of Dr. Kay Kohler. Standardized batch control materials react appropriately. The presence of tumor is confirmed. Scoring is according to ASCO/CAP 2018 guidelines. Membrane staining that is incomplete and is faint/barely perceptible and within less than 10% of tumor cells; score 0. The technical and professional components were performed by [facility], [address] [place] [id number] (Storage Engineer: Les Flowers D.O.; CLIA#: [id number]). Diagnostician: Kay Kohler MD Pathologist Diagnostician: Les Flowers DO Pathologist Electronically Signed 06/03/2020 Copies: ~ PATIENT NAME: EMELY WAN PATHOLOGY DATE OF : 36 REPORT #: [id number] PHYSICIAN: MURALI PATHOLOGY PCP: JESUS BATISTA PA-C REPORT IS CONFIDENTIAL AND NOT TO BE RELEASED WITHOUT AUTHORIZATION
== END ==
LOC: OPS 09:18 → DS 09:45
PROVIDERS: ATTEND Surgery
PROC: 0HBX3ZX Excision of Left Nipple, Percutaneous Approach, Diagnostic (ICD-10-PCS; principal; 2020-06-01)
DX: C50.012 Malignant neoplasm of nipple and areola, left female breast (principal); I10 Essential (primary) hypertension; E11.9 Type 2 diabetes mellitus without complications; E78.5 Hyperlipidemia, unspecified; E03.9 Hypothyroidism, unspecified; Z79.899 Other long term (current) drug therapy; Z79.890 Hormone replacement therapy; Z90.710 Acquired absence of both cervix and uterus; Z17.0 Estrogen receptor positive status [ER+]
CPT/HCPCS: 19100

== ENCOUNTER 2020-06-22 06:44 | Day surgery (SDC) | payer MEDICARE, BC ==
[~2020-06-22] VITALS: Ht 165.1 cm; Wt 61.8 kg
[2020-06-22] MEDS ORDERED: NIACIN100 MG PO (07:09)
[2020-06-22] MEDS ORDERED: EYE HEALTH ADU1 EACH PO (07:09)
[2020-06-22] MEDS ORDERED: CALCIUM500 MG PO (07:10)
[2020-06-22] MEDS ORDERED: VITAMIN D3 COM1 EACH PO (07:10)
--- NOTE | 2020-06-22 07:52 | NUR ---
PRE PROCEDURE CHECK IN COMPLETE. PT RESTING IN LOCKED AND LOWERED BED, CALL LIGHT WITHIN REACH, AT THE BEDSIDE.
--- NOTE | 2020-06-22 08:01 | NUR ---
IMAGINING IN TO TAKE PT FROM DAY SURGERY RM 4 TO THE IMAGING DEPARTMENT VIA WHEELCHAIR.
--- NOTE | 2020-06-22 09:06 | NUR ---
PT RETURNED TO DAY SURGERY RM 4 FROM IMAGING. NERY IN [facility] NOTIFIED OF PTS RETURN. NO FURTHER REQUESTS AT THIS TIME.
--- NOTE | 2020-06-22 09:34 | NUR ---
PT ALERT, ORIENTED AND SUPPORTED BY HER URIEL. PT HAS ARM IN WARM BLANKET IN PREP FOR IV. PT VERY PLEASANT, ANSWERED ALL QUESTIONS ASKED. PT DID REQUESTE PRAYER, WILL FOLLOW NEEDED
--- NOTE | 2020-06-22 10:46 | NUR ---
IN TO ADMIN MEDICATION. PT RESTING IN LOCKED AND LOWERED BED, CALL LIGHT WITHIN REACH. WARMER ON. AT THE BEDSIDE. NO FURTHER REQUESTS AT THIS TIME.
--- NOTE | 2020-06-22 10:52 | NUR ---
PT USED CALL LIGHT TO EXPRESS NEED TO GET UP TO THE RESTROOM. NERY Sanchez RN HELPED PT TO THE RESTROOM. PT AMBULATES INDEPENDENTLY AND VOIDS WITHOUT COMPLICATIONS. PT RETURNED TO RM 4 BY THIS RM. PT RESTING IN LOCKED AND LOWERED BED, CALL LIGHT WITHIN REACH, AT THE BEDSIDE, NO FURTHER REQUESTS AT THIS TIME.
--- NOTE | 2020-06-22 12:25 | NUR ---
06/22/20 1225 Sheets,Tiffanie 1218 PT ARRIVED TO PACU WITH ORAL AIRWAY IN PLACE. RESP EVEN AND UNLABORED WITH 6L VIA MASK IN PLACE. PT NONAROUSABLE. VSS.
[2020-06-22] MEDS ORDERED: HYDROCODON-ACE1 EA10 PO (12:36)
[2020-06-22] MEDS ORDERED: IBUPROFEN600 MG PO (12:36)
[2020-06-22] MEDS ORDERED: ACETAMINOPHEN500 MG PO (12:36)
--- NOTE | 2020-06-22 12:45 | NUR ---
PT ARRIVES FROM PACU TO DAY SURGERY RM 4. PT PROVIDED ICE WATER AND CRACKERS. DISCHARGE CRITERIA DISCUSSED. PT RESTING IN LOCKED AND LOWERED BED, SIDE RAILS UP, CALL LIGHT WITHIN REACH. NO FURTHER REQUESTS AT THIS TIME.
--- NOTE | 2020-06-22 13:54 | NUR ---
PT UP TO USE THE REST ROOM. PT AMBULATES AND VOIDS WITH NO COMPLICATIONS. DISCHARGE INSTRUCTIONS DISCUSSED WITH PT AND QUESTIONS ANSWERED. PT CALLED FOR TRANSPORTATION. PT ASSISTED WITH DRESSING.
--- NOTE | 2020-06-22 14:05 | NUR ---
DISCHARGE CRITERIA MET. PT LEFT DAY SURGERY RM 4 VIA WHEELCHAIR. PT TRANSFERED FROM WHEELCHAIR TO VEHICLE INDEPENDENTLY WITH NO COMPLICATIONS. [facility] PROVIDED TRANSPORTATION.
--- NOTE | 2020-06-25 09:01 | OR ---
[facility] [address] [place], [place] [address] Signed DATE OF OPERATION: 06/22/2020 SURGEON: Clotilde Simpson MD PREOPERATIVE DIAGNOSIS: Left periareolar infiltrating lobular carcinoma. POSTOPERATIVE DIAGNOSES: 1. Left periareolar infiltrating lobular carcinoma. 2. [place] lymph node times 3 negative for metastatic disease. PROCEDURES: 1. Injection of Methylene blue for sentinel lymph node identification. 2. Left deep axillary sentinel lymph node biopsy x3. 3. Partial mastectomy (central breast excision), including nipple-areolar complex. ANESTHESIA: General LMA, Clotilde Trevizo CRNA. INDICATIONS: This 80-year-old white woman is a patient of VICENTA Ward. She was found to have abnormal mammogram and a palpable mass, ultimately which was considered BI-RADS category 4. I performed image guided ultrasound biopsy of the lesion, which confirmed infiltrating lobular carcinoma, grade 1 of 3. There was some lobular carcinoma in situ present as well. Her options of management have been reviewed and at this point, she prefers breast conservation therapy, which will include central breast excision (partial mastectomy) and sentinel lymph node biopsy, possible axillary dissection depending on clinical and pathologic findings. The risks of bleeding, infection, cosmetic deformity, and so forth were reviewed with her. She understands and wished to proceed. FINDINGS: Good uptake of radionuclide and 2 sentinel lymph nodes of the left axilla were noted. Two dominant lymph nodes were noted, but excised were in fact 3, that had uptake of radionuclide and Methylene blue dye. On frozen pathology per Dr. Arechiga, there was no evidence of metastatic disease. The lesion was located in the inferior areolar margin. It was marble-sized and easily discerned palpably. Central breast excision was undertaken with a clinically negative Electronically Signed By: CLOTILDE SIMPSON MD 06/25/20 0901 PATIENT NAME: EMELY AWN OPERATIVE REPORT DATE OF : 36 REPORT #: [id number] PHYSICIAN: CLOTILDE SIMPSON MD PCP: JESUS BATISTA PA-C REPORT IS CONFIDENTIAL AND NOT TO BE RELEASED WITHOUT AUTHORIZATION [facility] [address] [place], [place] [address] Signed margin. The superior and lateral margins were marked for pathologic orientation. There were no complications. DESCRIPTION OF PROCEDURE: The patient was brought to the operating room having been received from [facility] for radionuclide injection. She was given a general anesthetic by LMA technique. Preoperative antibiotic Ancef was given. Sequential compression device stockings were used and heparin subcutaneously administered. The left breast was infiltrated in the periareolar area with 1.5 mL of Methylene blue dye in the subepithelial and subdermal area in the upper outer aspects of the nipple. The left breast and chest were prepared with a Betadine based solution and draped sterilely. Interrogation of the left axilla with a C-Trak gamma probe device showed an area of maximum uptake, which was chosen as the site for incision. This was in the [id number] left axilla. A transverse incision was made and dissection carried through the subcutaneous tissue with blunt electrocautery dissection. Using the probe was a guide, ultimately an area of maximal uptake was noted, this was dissected free. A few clips were applied to the area, ultimately excising the soft tissue, which upon close review showed good radionuclide uptake and Methylene blue dye. There was a small node and although firm, was unlikely to be malignant. It was sent for as sentinel lymph node #1. Additional dissection identified another similar such node and this was excised completely and it was sent for pathology as well. Ultimately Dr. Arechiga confirmed there were 3 sentinel lymph nodes in the specimen sent. All of them negative for metastatic disease. The wound had been packed with plain gauze to allow for central breast excision. The palpable mass was well defined, was marked, and an elliptical incision incorporating the nipple-areolar complex and the lesion itself was undertaken. Using electrocautery, dissection was undertaken in the superior margin and subsequently the inferior margin, where a small flap was elevated to allow for a clinically negative margin of the lesion. There was really no further margin likely to be beneficial considering the location of the tumor. A wide resection was undertaken. The specimen was marked with a superior stitch, that was short and long stitch laterally and no posterior margin marked as per request of the pathologist. Palpation of the edges, particularly in the inferior aspect revealed no suspicious tissue. The patient is relatively small breasted and so as to improve cosmetic appearance the inferior portion of the breast was freed from the chest wall, allowing for reapproximation superiorly with interrupted 2-0 Vicryl to the remaining parenchyma. The wound was closed in layers with interrupted 2-0 Vicryl and the skin ultimately closed with running subcuticular 3-0 Vicryl. The report of the pathologist as to the benign findings of the lymph nodes allowed for irrigation of the left axilla, security of hemostasis with electrocautery, and some application of Uday and ultimately closure with interrupted 2-0 Vicryl and running subcuticular 3-0 Vicryl for the skin. Electronically Signed By: CLOTILDE SIMPSON MD 06/25/20 0901 PATIENT NAME: EMELY WAN FRANCISCA OPERATIVE REPORT DATE OF : 36 REPORT #: [id number] PHYSICIAN: CLOTILDE SIMPSON MD PCP: JESUS BATISTA PA-C REPORT IS CONFIDENTIAL AND NOT TO BE RELEASED WITHOUT AUTHORIZATION [facility] [address] [place] [place] [address] Signed Steri-Strips were applied to each site, as was a silver sponge dressing and an Opsite. The patient tolerated procedure well, was ultimately extubated and transferred to the recovery room in good condition having suffered with no complications. Sponge, needle, and instrument counts were reported as correct x3. MD REBECCA Pacheco/BENJI /[id number] cc: VICENTA Rogers Copies: ~ Electronically Signed By: CLOTILDE SIMPSON MD 06/25/20 0901 PATIENT NAME: EMELY WAN OPERATIVE REPORT DATE OF : 36 REPORT #: [id number] PHYSICIAN: CLOTILDE SIMPSON MD PCP: JESUS BATISTA PA-C REPORT IS CONFIDENTIAL AND NOT TO BE RELEASED WITHOUT AUTHORIZATION
--- NOTE | 2020-06-25 14:43 | PATH ---
[facility] [address] [place], [place] [address] Signed SPECIMEN(S): A SENTINEL LYMPH NODE 1 SPECIMEN(S): B SENTINEL LYMPH NODE 2 SPECIMEN(S): C LEFT CENTRAL BREAST SPECIMEN SOURCE: A. SENTINEL LYMPH NODE 1 B. SENTINEL LYMPH NODE 2 C. LEFT CENTRAL BREAST CLINICAL HISTORY: Infiltrating lobular cancer of left breast. Left partial mastectomy with sentinel lymph node Specimen Time to Fixation- 06/22/2020 11:44:00 AM FROZEN SECTION DIAGNOSIS: A. [place] lymph node #1: - No evidence of malignancy in sales solutions representative section frozen (2 lymph nodes). Kay Kohler M.D. 06/22/2020, 11:33 a.m. B. [place] node #2: - No evidence of malignancy in sales solutions representative section frozen. Kay Kohler M.D. 06/22/2020, 11:35 a.m. Frozen section diagnoses called to Dr. Deleon at 11:52 p.m. AI (under the direct supervision of a pathologist) The Gross Description was prepared using a voice recognition system. The report was reviewed for accuracy; however, sound-alike word errors, addition and/or deletions may occur. If there is any question about this report, please contact Client Services. FINAL PATHOLOGIC DIAGNOSIS: A. [place] lymph node #1, left axilla, excisional biopsy: - No evidence of malignancy in one lymph node (0/1). - See comment. B. [place] lymph node #2, left axilla, excisional biopsy: - No evidence of malignancy in one lymph node (0/1). - See comment. C. Breast, left, central, lumpectomy: - Invasive lobular carcinoma with the following features: - Tumor site: Periareolar. - Tumor size: 1.7 x 1.4 x 1.0 cm. - Histologic type: Invasive lobular carcinoma. - Histologic grade ([place] histologic score): PATIENT NAME: EMELY WAN PATHOLOGY DATE OF : 36 REPORT #: [id number] PHYSICIAN: MURALI PATHOLOGY PCP: JESUS BATISTA PA-C REPORT IS CONFIDENTIAL AND NOT TO BE RELEASED WITHOUT AUTHORIZATION [facility] [address], [place] [address] Signed - Glandular (acinar)/tubular differentiation: Score 3. - Nuclear pleomorphism: Score 2. - Mitotic rate: Score 1. - Overall grade: Grade II (total score 6 of 9). 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 - Architectural patterns: Micropapillary and cribriform. - Nuclear grade: Grade 1 and 2. - Necrosis: Present, central comedo necrosis. - Lobular carcinoma in situ (LCIS): Present, classic and pleomorphic with comedo necrosis. - Margins: - Invasive carcinoma margins: Uninvolved. - Anterior: 3 mm. - Posterior: 4.5 mm. - Superior, inferior, medial and lateral: Greater than 10 mm. - DCIS margins: Uninvolved. - Posterior: 3 mm. - Anterior, superior, inferior, medial, and lateral: Greater than 10 mm. - Pleomorphic LCIS with necrosis margins: Uninvolved. - Posterior: 7 mm. - Anterior, superior, inferior, medial, and lateral: Greater than 10 mm. - Regional lymph nodes: Uninvolved by tumor cells. - Total number of lymph nodes examined: 2. - Number of sentinel lymph nodes examined: 2. - Treatment effect in the breast: No known pre-surgical therapy. - Lymphovascular invasion: Not identified. - Dermal lymphovascular invasion: Not identified. - Microcalcifications: Present associated with invasive carcinoma, pleomorphic LCIS with necrosis, and DCIS. - Biomarker studies: Refer to previously performed tests ([id number]), reported as estrogen receptor positive, progesterone receptor positive, HER2 negative by IHC, and Ki-67 proliferation index 13%. - Pathologic stage classification (pTNM, AJCC 8th ed): pT1c (sn)pN0. COMMENT: Regarding specimens A and B: Pancytokeratin (AE1/AE3) immunohistochemical PATIENT NAME: EMELY WAN PATHOLOGY DATE OF : 36 REPORT #: [id number] PHYSICIAN: MURALI BLACK PCP: JESUS BATISTA PA-C REPORT IS CONFIDENTIAL AND NOT TO BE RELEASED WITHOUT AUTHORIZATION [facility] [address] [place] [id number] Signed stains (with appropriately staining controls) were performed on each section of the sentinel lymph nodes (A1, A2, A3, B1, B2, B3) and support the absence of metastatic tumor cells. Regarding specimen C: In addition to invasive lobular carcinoma and classic and pleomorphic LCIS with focal necrosis, scattered foci of low to intermediate grade DCIS are present. No invasive ductal carcinoma is seen. Immunohistochemical stains (with appropriately staining controls) demonstrate strong and diffuse ER positivity, loss of CK5/6 epithelial staining, and e-cadherin membranous positivity in the areas of DCIS, confirming the diagnosis. As part of [facility]' Quality Improvement Program, this case was reviewed by another member of our pathology staff. NAL:cml:C1NR MICROSCOPIC EXAMINATION: Histologic sections of all submitted blocks are examined by light microscopy. These findings, together with the gross examination, support the pathologic diagnosis. GROSS DESCRIPTION: Three specimens are received in three containers, labeled "LL." A. The specimen, labeled "LL, A," and designated on the requisition "sentinel lymph node #1," is received fat are present section diagnosis and consists of a 1.5 x 1.2 x 0.7 cm piece of adipose tissue with 2 adjacent abutting lymph node candidates (possibly one lymph node), 1.1 x 0.5 x 0.4 cm. The lymph node(s) are bisected and one half is frozen. The specimen arrived to the gross room with 2 cassettes and additional tissue within specimen container. The first cassette is labeled "frozen "and contains one piece of yellow, lobulated tissue. The second cassette is without labeling and contains 2 sponges with a piece of dahl to yellow tissue. The specimen is submitted entirely as follows: A1 contents of cassette labeled frozen A2 contents of unlabeled cassette A3 remaining tissue B. The specimen, labeled "LL, B," and designated on the requisition "sentinel lymph node #2," is received fresh for frozen section and consists of a 1.4 x 0.6 x 0.5 cm piece of adipose tissue with a 1.1 x 0.6 x 0.5 cm lymph node candidate. The lymph node candidate is bisected and one half is submitted for frozen section diagnosis. The specimen arrived to the gross room with 2 cassettes and PATIENT NAME: EMELY WAN PATHOLOGY DATE OF : 36 REPORT #: [id number] PHYSICIAN: MURALI BLACK PCP: JESUS BATISTA PA-C REPORT IS CONFIDENTIAL AND NOT TO BE RELEASED WITHOUT AUTHORIZATION [facility] [address] [place], [place] [address] Signed additional tissue within the specimen container. The first cassette is labeled "frozen " and contains one piece of dahl to yellow rubbery tissue. The second cassette is without labeling and contains 2 sponges with a piece of dahl-yellow tissue. The specimen is submitted entirely as follows: B1 contents of cassette labeled frozen B2 contents of unlabeled cassette B3 remaining tissue C. The specimen, labeled "LL, C," and designated on the requisition "left central breast excision including nipple and areolar complex,; short stitch superior margin, long stitch lateral" is received in formalin and consists of a 49 g lumpectomy specimen that is oriented with a long suture indicating lateral and a short suture indicating superior. On the anterior portion of the specimen is a dahl, wrinkled, grossly unremarkable, 5.3 x 4.3 cm skin ellipse with an ill-defined, dahl, wrinkled, 3.2 x 2.4 cm possible areola that grossly appears to involve the peripheral skin margin on the superior aspect. Additionally the areola has a possible, markedly sunken, 1.5 x 1.2 x 0.2 cm pink-dahl nipple. The specimen measures 7.5 cm medial to lateral, 6.2 cm superior to inferior, and 2.6 cm anterior to posterior. The specimen is inked as follows: Superior = blue; inferior = green; posterior = black; anterior = yellow; medial = red; lateral = orange. The specimen is sectioned from medial to lateral into 13 slices to reveal a dense, dahl-white, fibrous 1.7 x 1.4 x 1.0 cm area (slice 5-7) that is 0.3 cm from the deep margin, and 0.4 cm from the anterior margin, 0.7 cm from the skin, 1.1 cm from the inferior margin, 1.7 cm from the possible nipple, 2.8 cm from the medial margin, 3.1 cm from the superior margin, and 4.5 cm from the lateral margin. The remaining parenchyma is comprised of fibrofatty and fibroglandular tissue. Fibroglandular tissue comprises less than 5% of the remaining parenchyma. Directly beneath the possible nipple the tissue is previously dyed blue. A discrete mass/lesion is not grossly identified. A biopsy marker is not identified. Information Broker sections are submitted as follows: C1-C2 full cross-section of fibrous area including anterior, skin, and deep margin (slice 6) C3 nearest inferior margin to area of dense fibrous tissue (slice 6) C4 possible nipple and nearest superior margin to fibrous area (slice 6) C5 fibrous area to inferior margin (slice 5) C6 fibrous area to anterior and posterior margins (slice 7) PATIENT NAME: EMELY WAN PATHOLOGY DATE OF : 36 REPORT #: [id number] PHYSICIAN: MURALI PATHOLOGY PCP: JESUS BATISTA PA-C REPORT IS CONFIDENTIAL AND NOT TO BE RELEASED WITHOUT AUTHORIZATION [facility] [address] [place] [id number] Signed C7 perpendicular sections of medial margin (slice one) C8 perpendicular sections of lateral margin (slice 13) C9 sales solutions representative of remaining parenchyma (slice 10) Note: Slice 6 is submitted entirely Cold ischemic time: 2 minutes per requisition form Formalin fixation time: Approximately 22 hours ADDITIONAL NOTES: Immunohistochemical and/or in situ hybridization studies were performed on this case with the appropriate positive controls that react as expected. This test was developed and its performance characteristics determined by [facility]. It has not been cleared or approved by the U.S. Food and Drug Administration. The FDA has determined that such clearance or approval is not necessary. This test is used for clinical purposes. It should not be regarded as investigational or for research. [facility] is certified under the Clinical Laboratory Improvement Amendments of 1988 (CLIA) as qualified to perform high complexity clinical laboratory testing. PERFORMING LABORATORY: [facility] [address] (CLIA# [id number]).The technical component was performed by [facility], [address] [place] [address] (Freelance Patternmaker: Esther Mtz MD; CLIA# [id number]). Professional interpretation [facility] performed [facility] [address] (CLIA# [id number]). Diagnostician: Kay Kohler MD Pathologist Electronically Signed 06/25/2020 Copies: ~ PATIENT NAME: EMELY WAN PATHOLOGY DATE OF : 36 REPORT #: [id number] PHYSICIAN: MURALI PATHOLOGY PCP: JESUS BATISTA PA-C REPORT IS CONFIDENTIAL AND NOT TO BE RELEASED WITHOUT AUTHORIZATION
== END 2020-06-22 14:00 | disposition home or self-care (01) ==
LOC: DS 06:44 → OPS 06:44 → NUC 08:00 → OPS 08:00 → EDSTATUS 08:00 → OPS 14:00
PROVIDERS: ATTEND Surgery
PROC: 0HBU0ZZ Excision of Left Breast, Open Approach (ICD-10-PCS; principal; 2020-06-22 10:15)
PROC: 07B60ZX Excision of Left Axillary Lymphatic, Open Approach, Diagnostic (ICD-10-PCS; 2020-06-22 10:15)
DX: C50.012 Malignant neoplasm of nipple and areola, left female breast (principal); I10 Essential (primary) hypertension; E11.9 Type 2 diabetes mellitus without complications; E03.9 Hypothyroidism, unspecified; E78.5 Hyperlipidemia, unspecified; F32.9 Major depressive disorder, single episode, unspecified; Z79.899 Other long term (current) drug therapy; Z79.890 Hormone replacement therapy; E78.00 Pure hypercholesterolemia, unspecified; Z01.812 Encounter for preprocedural laboratory examination; Z20.828 Contact with and (suspected) exposure to other viral communicable diseases
CPT/HCPCS: 00404; 78195; 88305; 88307; 88341; 88342; A9541; J0690; J1100; J1644; J1885; J2250; J2405; J2704; J2765; J3010; J7121; Q9968